=== PATIENT | female | born 1975 | race Caucasian/White ===

== ENCOUNTER 2019-10-11 16:14 | Emergency (ER) | payer SELFPAY ==
[~2019-10-11] VITALS: Ht 160 cm; Wt 95.0 kg
[~2019-10-11 16:14] MED LIST: ONDANSETRON 4 MG/2 ML (SDV) Z0FRAN ONE
[2019-10-11] MEDS ORDERED: NS IV 1000 ML 1,000 ML IV STA (16:16)
[2019-10-11] MEDS ORDERED: inSUlin (REGULAR) HUMAN 1 UNIT/0.01 ML (CHARGE PER UNIT) IV STA (16:20)
--- NOTE | 2019-10-11 16:20 | ED Abdominal Pain ---
General Chief Complaint: Abdominal/GI Problems Stated Complaint: VOMITING Source of Information: Patient, EMS, EMS Notes Reviewed History of Present Illness Date Seen by Provider: Oct 11, 2019 Time Seen by Provider: 16:10 Initial Comments This patient is a 44-year-old female who presents to the emergency department complaining of nausea vomiting and elevated blood glucose patient has a long history of diabetes. Patient states that she was taken off her diabetes medications over 2 years ago after she lost over 100 pounds. The states she get injured at work and has not been working gained a lot of weight back patient admits that she does not check her sugar regularly. Has not been taking any medications for the same for some time. EMS reports that the patient's glucose was over 400. We will do medical evaluation treatment is needed. The Timing/Duration: 4-6 Hours Severity/Quality: Moderate Location: Generalized Abdomen Radiation: No Radiation Modifying Factors: Worsens With Analgesics, Worsens With Antacids, Worsens With Breathing, Worsens With Coughing, Worsens With Defecating, Worsens With Eating, Worsens With Exercise, Worsens With Lying down, Worsens With Movement, Worsens With Palpation, Worsens With Resting, Worsens With Urinating, Worsens With Vomi ting, Worsens With Other Associated Symptoms: No Denies Symptoms, No Back Pain, No Chest Pain, No Diaphoresis, No Fever/Chills, No Fatigue, No Headache, No Heartburn, No Nausea/Vomiting, No Rash, No Shortness of Air, No Swelling/Mass in Abdomen, No Syncope, No Weakness, No Other Allergies and Home Medications Allergies Coded Allergies: No Known Drug Allergies (Unverified , 10/11/19) Patient Home Medication List Home Medication List Reviewed: Yes Review of Systems Review of Systems Constitutional: No no symptoms reported; see HPI; No chills, No diaphoresis, No dizziness, No fever, No malaise, No weakness, No weight gain, No weight loss, No other EENTM: No No Symptoms Reported, No See HPI, No Blurred Vision, No Double Vision, No Eye Pain, No Eye Tearing, No Ear Drainage, No Ear Pain, No Mouth Pain, No Mouth Swelling, No Nose Congestion, No Nose Pain, No Throat Pain, No Throat Swelling, No Other Respiratory: Denies No Symptoms Reported, Denies See HPI, Denies Cough, Denies Orthopnea, Denies Shortness of Air, Denies SOA With Exertion, Denies SOA at Rest, Denies Stridor, Denies Wheezing, Denies Other Cardiovascular: Denies No Symptoms Reported, Denies See HPI, Denies Chest Pain, Denies Edema, Denies Irregular Heart Rate, Denies Lightheadedness, Denies Palpitations, Denies Syncope, Denies Other Gastrointestinal: Denies No Symptoms Reported; See HPI; Denies Abdomen Distended; Abdominal Pain; Denies Blood Streaked Stools, Denies Constipated, Denies Diarrhea, Denies Difficulty Swallowing; Nausea; Denies Poor Appetite, Denies Poor Fluid Intake, Denies Rectal Bleeding; Vomiting; Denies Other Genitourinary: Denies No Symptoms Reported, Denies See HPI, Denies Burning, Denies Discharge, Denies Drainage, Denies Frequency, Denies Flank Pain, Denies Hematuria, Denies Incontinence, Denies Pain, Denies Urgency, Denies Other Skin: No no symptoms reported, No see HPI, No change in color, No change in hair/nails, No dryness, No hx of skin cancer, No lesions, No lumps, No pruritus, No rash, No other Physical Exam Vital Signs Vital Signs - First Documented 10/11/19 16:44 Temp 36.9 Pulse 88 Resp 20 B/P (MAP) 170/96 (120) Pulse Ox 95 O2 Delivery Room Air Capillary Refill : Height/Weight/BMI Height: '" Weight: lbs. oz. kg; BMI Method: General Appearance: WD/WN, no apparent distress; No mild distress, No moderate distress, No severe distress, No cachetic, No obese, No thin, No other HEENT: PERRL/EOMI, normal ENT inspection, TMs normal, pharynx normal Neck: non-tender, full range of motion, supple, normal inspection Respiratory: chest non-tender, lungs clear, normal breath sounds, no respiratory distress, no accessory muscle use Cardiovascular: normal peripheral pulses, regular rate, rhythm, no edema, no gallop, no JVD, no murmur Gastrointestinal: normal bowel sounds, non tender, soft, no organomegaly, no pulsatile mass Extremities: normal range of motion, non-tender, normal inspection, no pedal edema, no calf tenderness, normal capillary refill Progress/Results/Core Measures Results/Orders Lab Results Laboratory Tests Test 10/11/19 16:11 10/11/19 16:20 10/11/19 16:26 10/11/19 17:10 Range/Units White Blood Count 12.3 H 4.3-11.0 10^3/uL Red Blood Count 5.53 4.35-5.85 10^6/uL Hemoglobin 15.9 11.5-16.0 G/DL Hematocrit 47 35-52 % Mean Corpuscular Volume 84 80-99 FL Mean Corpuscular Hemoglobin 29 25-34 PG Mean Corpuscular Hemoglobin Concent 34 32-36 G/DL Red Cell Distribution Width 12.1 10.0-14.5 % Platelet Count 205 130-400 10^3/uL Mean Platelet Volume 13.1 H 7.4-10.4 FL Neutrophils (%) (Auto) 92 H 42-75 % Lymphocytes (%) (Auto) 6 L 12-44 % Monocytes (%) (Auto) 2 0-12 % Eosinophils (%) (Auto) 0 0-10 % Basophils (%) (Auto) 0 0-10 % Neutrophils # (Auto) 11.3 H 1.8-7.8 X 10^3 Lymphocytes # (Auto) 0.7 L 1.0-4.0 X 10^3 Monocytes # (Auto) 0.2 0.0-1.0 X 10^3 Eosinophils # (Auto) 0.0 0.0-0.3 10^3/uL Basophils # (Auto) 0.0 0.0-0.1 10^3/uL Neutrophils % (Manual) 84 % Lymphocytes % (Manual) 9 % Monocytes % (Manual) 1 % Eosinophils % (Manual) 0 % Basophils % (Manual) 1 % Band Neutrophils 5 % Blood Morphology Comment NORMAL Sodium Level 140 135-145 MMOL/L Potassium Level 4.6 3.6-5.0 MMOL/L Chloride Level 98 98-107 MMOL/L Carbon Dioxide Level 21 21-32 MMOL/L Anion Gap 21 H 5-14 MMOL/L Blood Urea Nitrogen 16 7-18 MG/DL Creatinine 0.92 0.60-1.30 MG/DL Estimat Glomerular Filtration Rate > 60 BUN/Creatinine Ratio 17 Glucose Level 471 *H 70-105 MG/DL Calcium Level 9.9 8.5-10.1 MG/DL Corrected Calcium 9.6 8.5-10.1 MG/DL Total Bilirubin 0.5 0.1-1.0 MG/DL Aspartate Amino Transf (AST/SGOT) 17 5-34 U/L Alanine Aminotransferase (ALT/SGPT) 20 0-55 U/L Alkaline Phosphatase 187 H 40-136 U/L Total Protein 7.2 6.4-8.2 GM/DL Albumin 4.4 3.2-4.5 GM/DL Amylase Level 80 25-125 U/L Lipase 34 8-78 U/L Serum Test, Qualitative NEGATIVE NEGATIVE Glucometer 409 *H 70-110 MG/DL Blood Gas Puncture Site LT RAD Blood Gas Patient Temperature 36.9 Arterial Blood pH 7.39 7.37-7.43 Arterial Blood Partial Pressure CO2 38 35-45 MMHG Arterial Blood Partial Pressure O2 66 L 79-93 MMHG Arterial Blood HCO3 23 23-27 MMOL/L Arterial Blood Total CO2 24.2 21.0-31.0 MMOL/L Arterial Blood Oxygen Saturation 93 L 94-100 % Arterial Blood Base Excess -1.7 -2.5-2.5 MMOL/L Theron Test YES-POS Blood Gas Ventilator Setting NO Blood Gas Inspired Oxygen ROOM AIR Urine Color YELLOW Urine Clarity CLEAR Urine pH 6.0 5-9 Urine Specific [place] 1.015 L 1.016-1.022 Urine Protein NEGATIVE NEGATIVE Urine Glucose (UA) 3+ H NEGATIVE Urine Ketones 2+ H NEGATIVE Urine Nitrite NEGATIVE NEGATIVE Urine Bilirubin NEGATIVE NEGATIVE Urine Urobilinogen 0.2 < = 1.0 MG/DL Urine Leukocyte Esterase NEGATIVE NEGATIVE Urine RBC (Auto) NEGATIVE NEGATIVE Urine RBC NONE /HPF Urine WBC NONE /HPF Urine Squamous Epithelial Cells 2-5 /HPF Urine Crystals NONE /LPF Urine Bacteria TRACE /HPF Urine Casts NONE /LPF Urine Mucus NEGATIVE /LPF Urine Culture Indicated NO Test 10/11/19 17:23 Range/Units Glucometer 333 H 70-110 MG/DL My Orders Orders - CHANDAN RUTH MD Comprehensive Metabolic Panel (10/11/19 16:16) Lipase (10/11/19 16:16) Amylase (10/11/19 16:16) Ua Culture If Indicated (10/11/19 16:16) Hcg,Qualitative Serum (10/11/19 16:16) Ed Iv/Invasive Line Start (10/11/19 16:16) Cbc With Automated Diff (10/11/19 16:16) Ns Iv 1000 Ml (Sodium Chloride 0.9%) (10/11/19 16:16) Ondansetron Injection (Zofran Injectio (10/11/19 16:30) Ondansetron Injection (Zofran Injectio (10/11/19 16:13) Arterial Blood Gas (10/11/19 16:23) Insulin (Regular) Human (Humulin R (Per (10/11/19 16:20) Manual Differential (10/11/19 16:11) Medications Given in ED Current Medications Medications Dose Ordered Sig/Jarrell Route Start Time Stop Time Status Last Admin Dose Admin Ondansetron HCl 4 mg ONCE ONCE IVP 10/11/19 16:30 10/11/19 16:31 DC 10/11/19 16:22 4 MG Vital Signs/I&O 10/11/19 16:44 Temp 36.9 Pulse 88 Resp 20 B/P (MAP) 170/96 (120) Pulse Ox 95 O2 Delivery Room Air FSBG Bedside Testing Finger Stick Blood Glucose: 400 Blood Glucose Action Taken: patient given IV fluid bolus and Zofran for nausea and regular insulin 8 un Progress Progress Note : Time: 17:55 Progress Note Patient is doing much better after IV fluid bolus. Nausea is resolved. Glucose is trending downward less than 300. I did discuss at length with patient options. Patient states that she was previously on metformin. We will restart this medication. Encourage by mouth fluids. Monitor glucose with glucometer as instructed with every meal and at bedtime. Take medications as instructed. Low carbohydrate diet. Follow-up with PCP in 2-3 days. Patient discharged home Departure Impression Primary Impression: Acute hyperglycemia Additional Impression: Nausea and vomiting Disposition: 01 HOME, SELF-CARE Condition: Stable Departure-Patient Inst. Decision time for Depature: 17:56 Patient Instructions: Blood Glucose Monitoring, Diabetes and Diet, Hypergl ycemia, Adult (DC) Add. Discharge Instructions: Encourage by mouth fluids. Monitor glucose with glucometer as instructed with every meal and at bedtime. Take medications as instructed. Low carbohydrate diet. Follow-up with PCP in 2-3 days. Patient discharged home All discharge instructions reviewed with patient and/or family. Voiced understanding. Scripts Metformin HCl (Metformin HCl) 1,000 Mg Tablet 1000 MG PO BID for 30 Days, #60 TAB 0 Refills Prov: CHANDAN RUTH MD 10/11/19 CHANDAN RUTH MD Oct 11, 2019 16:20
[2019-10-11] MEDS ORDERED: ONDANSETRON 4 MG/2 ML (SDV) Z0FRAN IVP ONE (16:30)
[2019-10-11 16:33] LABS: ABG BASE EXCESS -1.7 MMOL/L (-2.5-2.5); ABG OXYGEN SATURATION 93 % (94-100); ABG PCO2 38 MMHG (35-45); ABG PH 7.39 (7.37-7.43); ABG PO2 66 MMHG (79-93); ABG TCO2 24.2 MMOL/L (21.0-31.0)
[2019-10-11 16:34] LABS: BASOPHILS % (AUTO) 0 % (0-10); EOSINOPHILS % (AUTO) 0 % (0-10); HEMATOCRIT 47 % (35-52); HEMOGLOBIN 15.9 G/DL (11.5-16.0); LYMPHOCYTES % (AUTO) 6 % (12-44); MEAN CORPUSCULAR HEMOGLOBIN 29 PG (25-34); MEAN CORPUSCULAR HGB CONC 34 G/DL (32-36); MEAN CORPUSCULAR VOLUME 84 FL (80-99); MEAN PLATELET VOLUME 13.1 FL (7.4-10.4); MONOCYTES % (AUTO) 2 % (0-12); NEUTROPHILS % (AUTO) 92 % (42-75); PLATELET COUNT 205 10^3/uL (130-400); RED CELL DISTRIBUTION WIDTH 12.1 % (10.0-14.5); WHITE BLOOD COUNT 12.3 10^3/uL (4.3-11.0)
[2019-10-11 16:34] LABS: ALLENS TEST YES-POS; INSPIRED O2 ROOM AIR; PATIENT TEMP 36.9; VENTILATOR NO
[2019-10-11 16:35] LABS: LYMPHOCYTES # (AUTO) 0.7 X 10^3 (1.0-4.0); MONOCYTES # (AUTO) 0.2 X 10^3 (0.0-1.0); NEUTROPHILS # (AUTO) 11.3 X 10^3 (1.8-7.8)
[2019-10-11 16:54] LABS: CARBON DIOXIDE 21 MMOL/L (21-32); CHLORIDE 98 MMOL/L (98-107); POTASSIUM 4.6 MMOL/L (3.6-5.0); SODIUM 140 MMOL/L (135-145)
[2019-10-11 16:55] LABS: ALANINE AMINOTRANSFERASE 20 U/L (0-55); ALKALINE PHOSPHATASE 187 U/L (40-136); BILIRUBIN,TOTAL 0.5 MG/DL (0.1-1.0); BUN/CREATININE RATIO 17; CALCIUM 9.9 MG/DL (8.5-10.1); CREATININE SERUM 0.92 MG/DL (0.60-1.30); GFR ESTIMATED > 60; GLUCOSE 471 MG/DL (70-105)
[2019-10-11 16:56] LABS: ALBUMIN 4.4 GM/DL (3.2-4.5); AMYLASE 80 U/L (25-125); LIPASE 34 U/L (8-78); TOTAL PROTEIN 7.2 GM/DL (6.4-8.2)
[2019-10-11 17:20] LABS: BAND NEUTROPHILS 5 %; BASOPHILS % (MANUAL) 1 %; EOSINOPHILS % (MANUAL) 0 %; LYMPHOCYTES % (MANUAL) 9 %; MONOCYTES % (MANUAL) 1 %; NEUTROPHILS % (MANUAL) 84 %; RBC MORPH NORMAL
[2019-10-11 17:35] LABS: BILIRUBIN,URINE NEGATIVE (NEGATIVE); CLARITY,URINE CLEAR; COLOR,URINE YELLOW; GLUCOSE, URINE (UA) 3+ (NEGATIVE); KETONES,URINE 2+ (NEGATIVE); NITRITE,URINE NEGATIVE (NEGATIVE); PROTEIN,URINE NEGATIVE (NEGATIVE)
[2019-10-11 17:36] LABS: BACTERIA,URINE TRACE /HPF; LEUKOCYTE ESTERASE ,URINE NEGATIVE (NEGATIVE)
[2019-10-11] MEDS ORDERED: METF-399 PO (17:57)
[2019-10-11 18:15] VITALS: BP 165/89
--- OUTSIDE RECORDS SUMMARY | 2019-10-11 21:15 | XMS REPORT | Continuity of Care Document ---
Demographics Preferred Language Unknown Marital Status Unknown Religion Affiliation Unknown Race Unknown Ethnic Group Unknown Author Organization Unknown Address Unknown Phone Unavailable Allergies There is no data. Medications There is no data. Problems There is no data. Procedures There is no data. Results Test Result Range Complete blood count (CBC) with automate d white blood cell (WBC) differential - 10/11/19 16:11 Blood leukocytes automated count (number/volume) 12.3 10*3/uL 4.3-11.0 Blood erythrocytes automated count (number/volume) 5.53 10*6/uL 4.35-5.85 Venous blood hemoglobin measurement (mass/volume) 15.9 g/dL 11.5-16.0 Blood hematocrit (volume fraction) 47 % 35-52 Automated erythrocyte mean corpuscular volume 84 [ foz_us] 80-99 Automated erythrocyte mean corpuscular h emoglobin (mass per erythrocyte) 29 pg 25-34 Automated erythrocyte mean corpuscular h emoglobin concentration measurement (mass/volume) 34 g/dL 32-36 Automated erythrocyte distribution width ratio 12. 1 % 10.0- 14.5 Automated blood platelet count (count/volume) 205 10*3/uL 130-400 Automated blood platelet mean volume measurement 13.1 [foz_us] 7.4-10.4 Automated blood neutrophils/100 leukocytes 92 % 42-75 Automated blood lymphocytes/100 leukocytes 6 % 12-44 Blood monocytes/100 leukocytes 2 % 0-12 Automated blood eosinophils/100 leukocytes 0 % 0-10 Automated blood basophils/100 leukocytes 0 % 0-10 Blood neutrophils automated count (number/volume) 11.3 10*3 1.8-7.8 Blood lymphocytes automated count (number/volume) 0.7 10*3 1.0-4.0 Blood monocytes automated count (number/volume) 0. 2 10*3 0.0-1.0 Automated eosinophil count 0.0 10*3/uL 0 .0-0.3 Automated blood basophil count (count/volume) 0.0 10*3/uL 0.0-0.1 Serum or plasma choriogonadotropin (preg emma test) detection - 10/11/19 16:11 Serum or plasma choriogonadotropin ( test) de tection NEGATIVE NEGATIVE Comprehensive metabolic panel - 10/11/19 16:11 Serum or plasma sodium measurement (moles/volume) 140 mmol/L 135-145 Serum or plasma potassium measurement (moles/volume) 4.6 mmol/L 3.6-5.0 Serum or plasma chloride measurement (moles/volume) 98 mmol/L 98-107 Carbon dioxide 21 mmol/L 21-32 Serum or plasma anion gap determination (moles/volume) 21 mmol/L 5-14 Serum or plasma urea nitrogen measurement (mass/volume ) 16 mg/dL 7-18 Serum or plasma creatinine measurement (mass/volume) 0.92 mg/dL 0.60-1.30 Serum or plasma urea nitrogen/creatinine mass ratio 17 NRG Serum or plasma creatinine measurement w ith calculation of estimated glomerular filtration rate > NRG Serum or plasma glucose measurement (mass/volume) 471 mg/dL 70-105 Serum or plasma calcium measurement (mass/volume) 9.9 mg/dL 8.5-10.1 Serum or plasma total bilirubin measurement (mass/volu me) 0.5 mg/dL 0.1-1.0 Serum or plasma alkaline phosphatase clary surement (enzymatic activity/volume) 187 U/L 40-136 Serum or plasma aspartate aminotransfera se measurement (enzymatic activity/volume) 17 U/L 5-34 Serum or plasma alanine aminotransferase measurement (enzymatic activity/volume) 20 U/L 0-55 Serum or plasma protein measurement (mass/volume) 7.2 g/dL 6.4-8.2 Serum or plasma albumin measurement (mass/volume) 4.4 g/dL 3.2-4.5 CALCIUM CORRECTED 9.6 mg/dL 8.5-10.1 Serum or plasma amylase measurement (enz ymatic activity/volume) - 10/11/19 16:11 Serum or plasma amylase measurement (enzymatic activit y/volume) 80 U/L 25-125 Lipase - 10/11/19 16:11 Lipase 34 U/L 8-78 Manual absolute plasma cell count - 01/22 16:11 Blood monocytes/100 leukocytes 1 % NRG Manual blood segmented neutrophils/100 leukocytes 84 % NRG Blood band neutrophils/100 leukocytes 5 % NRG Manual blood lymphocytes/100 leukocytes 9 % NRG Manual eosinophils/100 leukocytes in nose 0 % NRG Manual blood basophils/100 leukocytes 1 % NRG Blood erythrocyte morphology finding identification NORMAL NRG Capillary blood glucose measurement by g lucometer (mass/volume) - 10/11/19 16:20 Capillary blood glucose measurement by glucometer (mas s/volume) 409 mg/dL 70-110 Arterial blood gas measurement - 0 16:26 Blood pCO2 38 mm[Hg] 35-45 Blood pO2 66 mm[Hg] 79-93 Arterial blood bicarbonate measurement (moles/volume) 23 mmol/L 23-27 Arterial blood base excess by calculation -1.7 mmo l/L -2.5-2.5 Arterial blood oxygen saturation measurement 93 % 94-100 * Inhaled oxygen flow rate ROOM AIR NRG Arterial blood pH measurement with patient temperature correction 7.39 7.37-7.43 Arterial blood carbon dioxide, total measurement (mole s/volume) 24.2 mmol/L 21.0-31.0 Body site LT RAD NRG Assessment of wrist artery patency prior to arterial p uncture YES-POS NRG Setting of ventilation mode NO NR G Measurement of body temperature 36.9 NRG Complete urinalysis with reflex to cultu re - 10/11/19 17:10 Urine color determination YELLOW NRG Urine clarity determination CLEAR NR G Urine pH measurement by test strip 6.0 5-9 Specific gravity of urine by test strip 1.015 1.016-1.022 Urine protein assay by test strip, semi-quantitative NEGATIVE NEGATIVE Urine glucose detection by automated test strip 3+ NEGATIVE Erythrocytes detection in urine sediment by light micr oscopy NEGATIVE NEGATIVE Urine ketones detection by automated test strip 2+ NEGATIVE Urine nitrite detection by test strip NEGATIVE NEGATIVE Urine total bilirubin detection by test strip NEGA TIVE NEGATIVE Urine urobilinogen measurement by automated test strip (mass/volume) 0.2 mg/dL < = 1.0 Urine leukocyte esterase detection by dipstick NEG ATIVE NEGATIVE Automated urine sediment erythrocyte cou nt by microscopy (number/high power field) NONE NRG Automated urine sediment leukocyte count by microscopy (number/high power field) NONE NRG Bacteria detection in urine sediment by light microsco py TRACE NRG Squamous epithelial cells detection in u rine sediment by light microscopy 2-5 NRG Crystals detection in urine sediment by light microsco py NONE NRG Casts detection in urine sediment by light microscopy NONE NRG Mucus detection in urine sediment by light microscopy NEGATIVE NRG Complete urinalysis with reflex to culture NO NRG Capillary blood glucose measurement by g lucometer (mass/volume) - 10/11/19 17:23 Capillary blood glucose measurement by glucometer (mas s/volume) 333 mg/dL 70-110 Encounters ACCT No. Visit Date/Time Discharge Status Pt. Type Provider Facility Loc./Unit Complaint [id number] 10/11/2019 16:28:00 Document Registration
== END 2019-10-11 17:30 | disposition home or self-care (01) ==
LOC: EDUNIT# 16:14 → ER FS 16:15
DX: E11.65 Type 2 diabetes mellitus with hyperglycemia (principal); R11.2 Nausea with vomiting, unspecified
CPT/HCPCS: 36415; 80053; 81000; 82150; 82805; 82962; 83690; 84703; 85007; 85027; 96361; 96374; 96375

== ENCOUNTER 2019-10-20 14:59 | Emergency (ER) | payer SELFPAY ==
[~2019-10-20] VITALS: Ht 160 cm; Wt 86.4 kg
[~2019-10-20 14:59] MED LIST changes: +METF-399 PO; +METOCLOPRAMIDE INJ 10 MG/2 ML (REGLAN) ONE; -ONDANSETRON 4 MG/2 ML (SDV) Z0FRAN ONE
[2019-10-20] MEDS ORDERED: NS IV 1000 ML 1,000 ML IV STA (15:04)
--- NOTE | 2019-10-20 15:08 | ED General ---
General Stated Complaint: DIZZY; NAUSEA Source of Information: Patient, EMS, Old Records, RN Notes Reviewed History of Present Illness Date Seen by Provider: Oct 20, 2019 Time Seen by Provider: 15:00 Initial Comments This patient is a 44-year-old female presents to the emergency department complaining nausea vomiting this been going on for the past several days. Patient seen 1 week ago in the emergency department for same with a negative evaluation discharged home she states she was started on metformin at that time. Patient did see her PCP yesterday with a telemedicine visit for this nausea vomiting continues with metformin but also was placed on lisinopril for blood pressure issues. Patient states still can't keep anything down his been dry heaving and vomiting. EMS did start an IV on the patient and gave the patient 4 mg of IV Zofran. Patient is still nauseous on arrival. Patient states she has a long history of acid reflux. Timing/Duration: 6-7 Days Associated Systoms: No Denies Symptoms, No Chest Pain, No Cough, No Diaphoresis, No Fever/Chills; Loss of Appetite; No Malaise, No Nausea/Vomiting, No Rash, No Seizure, No Shortness of Air, No Syncope, No Weakness, No Other Allergies and Home Medications Allergies Coded Allergies: No Known Drug Allergies (Unverified , 10/11/19) Home Medications Metformin HCl 1,000 Mg Tablet, 1,000 MG PO BID Prescribed by: CHANDAN RUTH on 10/11/19 6935 Patient Home Medication List Home Medication List Reviewed: Yes Review of Systems Review of Systems Constitutional: No no symptoms reported; see HPI; No chills, No diaphoresis, No dizziness, No fever, No malaise, No weakness, No weight gain, No weight loss, No other EENTM: No see HPI, No no symptoms reported, No ear discharge, No hearing loss, No ear pain, No blurred vision, No double vision, No eye pain, No tearing, No vision loss, No dental problems, No hoarseness, No mouth pain, No mouth swelling, No epistaxis, No nose congestion, No nose pain, No throat pain, No throat swelling, No other Respiratory: No no symptoms reported, No see HPI, No cough, No dyspnea on exertion, No hemoptysis, No orthopnea, No phlegm, No short of breath, No stridor, No wheezing, No other Cardiovascular: No no symptoms reported, No see HPI, No chest pain, No edema, No Hx of Intervention, No palpitations, No syncope, No vascular heart diseas, No other Gastrointestinal: see HPI, heartburn, nausea, vomiting Genitourinary: No no symptoms reported, No see HPI, No decreased output, No discharge, No dysuria, No frequency, No hematuria, No hesitancy, No incontinence, No nocturia, No pain, No other Musculoskeletal: No no symptoms reported, No see HPI, No back pain, No gout, No joint pain, No joint swelling, No muscle pain, No muscle stiffness, No muscle cramps, No muscle twitching, No muscle weakness, No neck pain, No other Skin: No no symptoms reported, No see HPI, No change in color, No change in hair/nails, No dryness, No hx of skin cancer, No lesions, No lumps, No pruritus, No rash, No other All Other Systems Reviewed Negative Unless Noted: Yes Past Bwhdccu-Acjxfe-Nyvfla Hx Patient Social History Type Used: Cigarettes 2nd Hand Smoke Exposure: No Recent Foreign Travel: Yes Recent Hopitalizations: No Seasonal Allergies Seasonal Allergies: No Past Medical History Surgeries: Yes Hysterectomy, Tubal Ligation Respiratory: No Cardiac: Yes Hypertension 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 oz. kg; 37.00 BMI Method: General Appearance: No Apparent Distress, WD/WN Respiratory: Chest Non Tender, Lungs Clear, Normal Breath Sounds, No Accessory Muscle Use, No Respiratory Distress Cardiovascular: Regular Rate, Rhythm, No Edema, No Gallop, No JVD, No Murmur, Normal Peripheral Pulses Gastrointestinal: Normal Bowel Sounds, No Organomegaly, No Pulsatile Mass, Non Tender, Soft Extremity: Normal Capillary Refill, Normal Inspection, Normal Range of Motion, Non Tender, No Calf Tenderness, No Pedal Edema Skin: Normal Color, Warm/Dry Lymphatic: No Adenopathy Progress/Results/Core Measures Suspected Sepsis SIRS Temperature: Pulse: Respiratory Rate: Laboratory Tests 10/20/19 15:07: White Blood Count 12.9H Blood Pressure / Mean: Laboratory Tests 10/20/19 15:07: Creatinine 0.98, Platelet Count 240, Total Bilirubin 0.4 Results/Orders Lab Results Laboratory Tests Test 10/20/19 15:07 10/20/19 16:16 Range/Units White Blood Count 12.9 H 4.3-11.0 10^3/uL Red Blood Count 5.50 4.35-5.85 10^6/uL Hemoglobin 15.8 11.5-16.0 G/DL Hematocrit 46 35-52 % Mean Corpuscular Volume 84 80-99 FL Mean Corpuscular Hemoglobin 29 25-34 PG Mean Corpuscular Hemoglobin Concent 34 32-36 G/DL Red Cell Distribution Width 12.1 10.0-14.5 % Platelet Count 240 130-400 10^3/uL Mean Platelet Volume 13.4 H 7.4-10.4 FL Neutrophils (%) (Auto) 82 H 42-75 % Lymphocytes (%) (Auto) 13 12-44 % Monocytes (%) (Auto) 3 0-12 % Eosinophils (%) (Auto) 0 0-10 % Basophils (%) (Auto) 1 0-10 % Neutrophils # (Auto) 10.6 H 1.8-7.8 X 10^3 Lymphocytes # (Auto) 1.7 1.0-4.0 X 10^3 Monocytes # (Auto) 0.4 0.0-1.0 X 10^3 Eosinophils # (Auto) 0.0 0.0-0.3 10^3/uL Basophils # (Auto) 0.1 0.0-0.1 10^3/uL Sodium Level 141 135-145 MMOL/L Potassium Level 4.6 3.6-5.0 MMOL/L Chloride Level 101 98-107 MMOL/L Carbon Dioxide Level 21 21-32 MMOL/L Anion Gap 19 H 5-14 MMOL/L Blood Urea Nitrogen 21 H 7-18 MG/DL Creatinine 0.98 0.60-1.30 MG/DL Estimat Glomerular Filtration Rate > 60 BUN/Creatinine Ratio 21 Glucose Level 261 H 70-105 MG/DL Calcium Level 9.8 8.5-10.1 MG/DL Corrected Calcium 9.4 8.5-10.1 MG/DL Total Bilirubin 0.4 0.1-1.0 MG/DL Aspartate Amino Transf (AST/SGOT) 19 5-34 U/L Alanine Aminotransferase (ALT/SGPT) 22 0-55 U/L Alkaline Phosphatase 157 H 40-136 U/L Total Protein 6.9 6.4-8.2 GM/DL Albumin 4.5 3.2-4.5 GM/DL Amylase Level 87 25-125 U/L Lipase 50 8-78 U/L Serum Test, Qualitative NEGATIVE NEGATIVE Urine Color YELLOW Urine Clarity SLT CLOUDY Urine pH 5.0 5-9 Urine Specific [place] >=1.030 1.016-1.022 Urine Protein 1+ H NEGATIVE Urine Glucose (UA) 3+ H NEGATIVE Urine Ketones 3+ H NEGATIVE Urine Nitrite NEGATIVE NEGATIVE Urine Bilirubin NEGATIVE NEGATIVE Urine Urobilinogen 0.2 < = 1.0 MG/DL Urine Leukocyte Esterase NEGATIVE NEGATIVE Urine RBC (Auto) NEGATIVE NEGATIVE Urine RBC NONE /HPF Urine WBC 0-2 /HPF Urine Squamous Epithelial Cells 10-25 H /HPF Urine Crystals PRESENT H /LPF Urine Amorphous Sediment FEW RYAN URATES H /LPF Urine Bacteria TRACE /HPF Urine Casts NONE /LPF Urine Mucus NONE /LPF Urine Culture Indicated NO Urine Opiates Screen NEGATIVE NEGATIVE Urine Oxycodone Screen NEGATIVE NEGATIVE Urine Methadone Screen NEGATIVE NEGATIVE Urine Propoxyphene Screen NEGATIVE NEGATIVE Urine Barbiturates Screen NEGATIVE NEGATIVE Ur Tricyclic Antidepressants Screen NEGATIVE NEGATIVE Urine Phencyclidine Screen NEGATIVE NEGATIVE Urine Amphetamines Screen NEGATIVE NEGATIVE Urine Methamphetamines Screen NEGATIVE NEGATIVE Urine Benzodiazepines Screen NEGATIVE NEGATIVE Urine Cocaine Screen NEGATIVE NEGATIVE Urine Cannabinoids Screen NEGATIVE NEGATIVE My Orders Orders - CHANDAN RUTH MD Comprehensive Metabolic Panel (10/20/19 15:03) Lipase (10/20/19 15:03) Amylase (10/20/19 15:03) Ua Culture If Indicated (10/20/19 15:03) Hcg,Qualitative Serum (10/20/19 15:03) Ed Iv/Invasive Line Start (10/20/19 15:03) Acute Abd Series (10/20/19 15:03) Cbc With Automated Diff (10/20/19 15:03) Drug Screen Stat (Urine) (10/20/19 15:03) Metoclopramide Injection (Reglan Injecti (10/20/19 15:15) Metoclopramide Injection (Reglan Injecti (10/20/19 14:57) Ns Iv 1000 Ml (Sodium Chloride 0.9%) (10/20/19 15:04) Pantoprazole Injection (Protonix Injecti (10/20/19 15:15) Medications Given in ED Current Medications Medications Dose Ordered Sig/Jarrell Route Start Time Stop Time Status Last Admin Dose Admin Metoclopramide HCl 10 mg ONCE ONCE IVP 10/20/19 15:15 10/20/19 15:16 DC 10/20/19 15:11 10 MG Pantoprazole 40 mg ONCE ONCE IV 10/20/19 15:15 10/20/19 15:16 DC 10/20/19 15:12 40 MG Vital Signs/I&O 10/20/19 15:02 Temp 36.3 Pulse 79 Resp 18 B/P (MAP) 144/79 (100) Pulse Ox 98 O2 Delivery Room Air Capillary Refill : Progress Note : Time: 17:08 Progress Note This patient is much improved and resting comfortably. Patient states still has low bit of nausea with causing him to be a little dizzy. Has had no vomiting in the emergency department. After given medications. We did discuss at length with patient about acid reflux issues chronic diabetes gastroparesis nausea vomiting. Patient be given a prescription for Reglan and Zofran. We'll also place the patient on by mouth Protonix. Patient is to follow up with her PCP in 2-3 days patient could possibly benefit from an outpatient EGD. Patient states understanding she is discharged home Departure Impression Primary Impression: Nausea and vomiting Additional Impressions: Diabetes mellitus GERD without esophagitis Disposition: 01 HOME, SELF-CARE Condition: Stable Departure-Patient Inst. Decision time for Depature: 17:09 Referrals: NO,LOCAL PHYSICIAN (PCP) Primary Care Physician Patient Instructions: Acid Reflux (GERD), Adolescent (DC), Diabetes Type 2 (DC), Nausea and Vomiting, Adult (DC) Add. Discharge Instructions: Encourage by mouth fluids. [place] diet as needed. Take medications as instructed. Follow-up with PCP in 2-3 days if not improved. May return to the emergency department symptoms don't improve or worsen. Scripts Ondansetron (Ondansetron Odt) 4 Mg Tab.rapdis 4 MG PO 3 times a day, #10 TAB 0 Refills Prov: CHANDAN RUTH MD 10/20/19 Metoclopramide HCl (Reglan) 5 Mg Tablet 5 MG PO 3 times a day, #30 TAB 0 Refills Prov: CHANDAN RUTH MD 10/20/19 Pantoprazole Sodium (Protonix) 20 Mg Tablet.dr 20 MG PO DAILY, #30 TAB 0 Refills Prov: CHANDAN RUTH MD 10/20/19 CHANDAN RUTH MD Oct 20, 2019 15:08
[2019-10-20] MEDS ORDERED: METOCLOPRAMIDE INJ 10 MG/2 ML (REGLAN) IVP ONE (15:15)
[2019-10-20] MEDS ORDERED: PANTOPRAZOLE 40 MG (PROTONIX) VIAL IV ONE (15:15)
[2019-10-20 15:19] LABS: WHITE BLOOD COUNT 12.9 10^3/uL (4.3-11.0)
[2019-10-20 15:20] LABS: HEMATOCRIT 46 % (35-52); HEMOGLOBIN 15.8 G/DL (11.5-16.0); MEAN CORPUSCULAR HEMOGLOBIN 29 PG (25-34); MEAN CORPUSCULAR VOLUME 84 FL (80-99)
[2019-10-20 15:21] LABS: BASOPHILS # (AUTO) 0.1 10^3/uL (0.0-0.1); BASOPHILS % (AUTO) 1 % (0-10); EOSINOPHILS % (AUTO) 0 % (0-10); LYMPHOCYTES # (AUTO) 1.7 X 10^3 (1.0-4.0); LYMPHOCYTES % (AUTO) 13 % (12-44); MEAN CORPUSCULAR HGB CONC 34 G/DL (32-36); MEAN PLATELET VOLUME 13.4 FL (7.4-10.4); MONOCYTES # (AUTO) 0.4 X 10^3 (0.0-1.0); MONOCYTES % (AUTO) 3 % (0-12); NEUTROPHILS # (AUTO) 10.6 X 10^3 (1.8-7.8); NEUTROPHILS % (AUTO) 82 % (42-75); PLATELET COUNT 240 10^3/uL (130-400); RED CELL DISTRIBUTION WIDTH 12.1 % (10.0-14.5)
[2019-10-20 15:42] LABS: BUN/CREATININE RATIO 21; CARBON DIOXIDE 21 MMOL/L (21-32); CHLORIDE 101 MMOL/L (98-107); CREATININE SERUM 0.98 MG/DL (0.60-1.30); GFR ESTIMATED > 60; POTASSIUM 4.6 MMOL/L (3.6-5.0); SODIUM 141 MMOL/L (135-145)
[2019-10-20 15:43] LABS: ALANINE AMINOTRANSFERASE 22 U/L (0-55); ALBUMIN 4.5 GM/DL (3.2-4.5); ALKALINE PHOSPHATASE 157 U/L (40-136); AMYLASE 87 U/L (25-125); BILIRUBIN,TOTAL 0.4 MG/DL (0.1-1.0); CALCIUM 9.8 MG/DL (8.5-10.1); GLUCOSE 261 MG/DL (70-105); LIPASE 50 U/L (8-78); TOTAL PROTEIN 6.9 GM/DL (6.4-8.2)
--- NOTE | 2019-10-20 15:47 | Diagnostic Imaging Report ---
EXAM: ACUTE ABD SERIES INDICATION: Nausea and vomiting. Dizziness. COMPARISON: None. FINDINGS: Normal heart size and pulmonary vascularity. No dense consolidation, pleural effusion or pneumothorax. No acute osseous findings. No free intraperitoneal air. Nonspecific bowel gas pattern. No suspicious radiopaque foreign bodies. Surgical clips in the pelvis. IMPRESSION: No acute radiographic findings in the chest or abdomen. Dictated by: Dictated on workstation # [id number]
--- NOTE | 2019-10-20 15:56 | NUR ---
Patient is resting comfortably at this time, vomiting controlled. Patient continues to c/o dizziness.
[2019-10-20 16:32] LABS: CLARITY,URINE SLT CLOUDY; COLOR,URINE YELLOW; GLUCOSE, URINE (UA) 3+ (NEGATIVE); PROTEIN,URINE 1+ (NEGATIVE)
[2019-10-20 16:33] LABS: BACTERIA,URINE TRACE /HPF; BILIRUBIN,URINE NEGATIVE (NEGATIVE); KETONES,URINE 3+ (NEGATIVE); LEUKOCYTE ESTERASE ,URINE NEGATIVE (NEGATIVE); NITRITE,URINE NEGATIVE (NEGATIVE); WBC,URINE 0-2 /HPF
--- OUTSIDE RECORDS SUMMARY | 2019-10-20 16:33 | XMS REPORT | Continuity of Care Document ---
Author Organization Unknown Address Unknown Phone Unavailable Allergies Active Description Code Type Severity Reaction Onset Reported/Identified Relationship to Patient Clinical Status Yes No Known Drug Allergies [id number] Drug Allergy Unknown N/A 10/11/2019 Medications There is no data. Problems There [...] 8-78 Manual absolute plasma cell count - 04/0 7/20 16:11 Blood monocytes/100 leukocytes 1 % NRG [...] Status Pt. Type Provider Facility Loc./Unit Complaint [id number] 10/11/2019 16:15:00 020 17:30:00 DIS Emergency FARAZ DUFF, CHANDAN Jose [facility] ER FS VOMITING
[2019-10-20 16:34] LABS: AMORPHOUS SEDIMENT,UR FEW AMOR URATES /LPF
[2019-10-20 16:35] LABS: AMPHETAMINE SCREEN, URINE NEGATIVE (NEGATIVE); BARBITURATE SCREEN URINE NEGATIVE (NEGATIVE); BENZODIAZEPINES SCREEN URINE NEGATIVE (NEGATIVE); CANNABINOID SCREEN, URINE NEGATIVE (NEGATIVE); COCAINE SCREEN URINE NEGATIVE (NEGATIVE); METHADONE STAT NEGATIVE (NEGATIVE); METHAMPHETAMINE SCREEN URINE S NEGATIVE (NEGATIVE); OPIATE SCREEN URINE NEGATIVE (NEGATIVE); OXYCODONE STAT NEGATIVE (NEGATIVE); PROPOXYPHENE STAT NEGATIVE (NEGATIVE); TRICYCLIC ANTIDEPRESSANTS SCRE NEGATIVE (NEGATIVE)
[2019-10-20] MEDS ORDERED: METO5TAB75 PO (17:13)
[2019-10-20] MEDS ORDERED: ONDA4TAB11 PO (17:13)
[2019-10-20] MEDS ORDERED: PANT20TA2 PO (17:13)
[2019-10-20 17:39] VITALS: BP 127/51
== END 2019-10-20 17:41 | disposition home or self-care (01) ==
LOC: EDUNIT# 14:59 → ER FS 15:01
DX: E11.9 Type 2 diabetes mellitus without complications (principal); K21.9 Gastro-esophageal reflux disease without esophagitis; I10 Essential (primary) hypertension
CPT/HCPCS: 36415; 74022; 80053; 80306; 81000; 82150; 83690; 84703; 85025; 96374; 96375

== ENCOUNTER 2021-05-11 22:11 | Emergency (ER) | payer SELFPAY ==
[~2021-05-11 22:11] MED LIST changes: +METO5TAB75 PO; -METOCLOPRAMIDE INJ 10 MG/2 ML (REGLAN) ONE; +ONDA4TAB11 PO; +PANT20TA2 PO
--- OUTSIDE RECORDS SUMMARY | 2021-05-11 22:15 | XMS REPORT | Clinical Summary ---
Author Author [facility] Organization [facility] Address Unknown Phone Unavailable Care Team Providers Care Flight Purser Name Role Phone Ada Elena NP PCP Allergies No known active allergies Medications End Date Status Medication Sig Dispensed Refills Start Date Active escitalopram oxalate Take 20 mg by 0 (LEXAPRO) 20 mg tablet mouth daily. Active Problems Not on file Social History Date Tobacco Use Types Packs/Day Years Used Current Some Day Smoker Comments Alcohol Use Standard Drinks/Week No 0 (1 standard drink = 0.6 o z pure alcohol) Sex Assigned at Date Recorded Not on file Last Filed Vital Signs Reading Time Taken Comments Vital Sign 159/91 07/23/2018 10:01 AM [facility] Blood Pressure 63 07/23/2018 8:54 AM [facility] [employer] Pulse 37 C (98.6 F) 07/23/2018 8:54 AM [facility] [employer] Temperature 20 07/23/2018 8:54 AM [employer] Respiratory Rate 98% 07/23/2018 10:01 AM [employer] Oxygen Saturation - - Inhaled Oxygen Concentration 83.9 kg (185 lb) 07/23/2018 8:54 AM [employer] Weight 160 cm (5' 3") 07/23/2018 8:54 AM [employer] Height 32.77 07/23/2018 8:54 AM [facility] [employer] Body Mass Index Plan of Treatment Health Maintenance Due Date Last Done Comments Td/Tdap# 1973 Tobacco Cessation 1973 Counseling # Pneumococcal Vaccine: 1979 Pediatrics (0 to 5 Years) and At-Risk Patients (6 to 64 Years) (1 of 2 - PPSV23) COVID-19 Vaccine (1) 1985 Influenza Vaccine (#1) 2021 Results Not on filefrom Last 3 Months Insurance Type Payer Benefit Subscriber ID Effective Phone Address Plan / Dates Group WORKERS COMPENSATION MISC WORK [id number] 2018- [phone] Present [address] [place] [address] WORKERS COMPENSATION COVENTRY 2018- FIRST Present [facility] [place] (Work) Advance Directives For more information, please contact: [phone] Patient Medical I D Sales Explanation Type Date Recorded Health Care Directive Care Teams Start Date End Date Flight Purser Relationship Specialty 07/23/18 Ada Elena NP PCP - General Nurse [address] [place] [address]
--- NOTE | 2021-05-11 22:36 | ED General ---
General Chief Complaint: Cardiac/General Problems Stated Complaint: HIGH BP;LIGHTHEADED Nursing Triage Note: Pt states she had a slight headache yesterday and has had high blood pressure throughout the day today. Pt states her headache has gotten worse and that she feels light headed at times. Pt is alert and oriented on arrival. Source of Information: Patient History of Present Illness Date Seen by Provider: May 11, 2021 Time Seen by Provider: 22:18 Initial Comments 45-year-old female presenting with complaints of right-sided intermittent sharp headaches. She also is having elevation in her blood pressure since yesterday when the headache started. She has not seen the clinic earlier today about her blood pressure and they advised her to drink more fluids. She plans to go back on Thursday to see Dr. Vaz. However this evening she was having elevated blood pressure on her machine so she took her evening blood pressure medication and then when it was not coming down over the next 45 minutes to an hour she came to the emergency department. She denies having nausea, vomiting, blurred vision, headache, chest pain, chest pressure, Timing/Duration: 2-3 Days Modifying Factors: worse with Movement Associated Systoms: No Denies Symptoms, No Chest Pain, No Cough, No Diaph oresis, No Fever/Chills; Headaches (Right-sided); No Loss of Appetite, No Malaise, No Rash, No Shortness of Air, No Syncope Allergies and Home Medications Allergies Coded Allergies: No Known Drug Allergies (Unverified , 10/11/19) Patient Home Medication List Home Medication List Reviewed: Yes Metformin HCl (Metformin HCl) 1,000 Mg Tablet, 1,000 MG PO BID Prescribed by: CHANDAN RUTH on 10/11/19 175 Metoclopramide HCl (Reglan) 5 Mg Tablet, 5 MG PO 3 times a day Prescribed by: CHANDAN RUTH on 10/20/191712 Ondansetron (Ondansetron Odt) 4 Mg Tab.rapdis, 4 MG PO 3 times a day Prescribed by: CHANDAN RUTH on 10/20/191712 Pantoprazole Sodium (Protonix) 20 Mg Tablet.dr, 20 MG PO DAILY Prescribed by: CHANDAN RUTH on 10/20/191712 Review of Systems Review of Systems Constitutional: no symptoms reported EENTM: ear pain (Sharp right ear pain that is intermittent and radiates to the right side of her head) Respiratory: no symptoms reported Cardiovascular: no symptoms reported Gastrointestinal: no symptoms reported Genitourinary: no symptoms reported Musculoskeletal: no symptoms reported Skin: no symptoms reported Psychiatric/Neurological: No Symptoms Reported Hematologic/Lymphatic: No Symptoms Reported Immunological/Allergic: no symptoms reported Past Ztitsmb-Qasceb-Ytmwnu Hx Patient Social History Tobacco Use?: No Use of E-Cig and/or Vaping dev: No Substance use?: No Alcohol Use?: No Pt feels they are or have been: No Seasonal Allergies Seasonal Allergies: No Past Medical History Surgeries: Yes Hysterectomy, Tubal Ligation Respiratory: No Cardiac: Yes Hypertension 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 oz. kg; 33.00 BMI Method: General Appearance: Anxious, Obese HEENT: PERRL/EOMI, Normal ENT Inspection, Pharynx Normal, TM Abnormal (R) (Unable to visualize right TM due to cerumen impaction) Neck: Full Range of Motion, Normal Inspection, Non Tender, Supple Respiratory: Chest Non Tender, Lungs Clear, Normal Breath Sounds, No Accessory Muscle Use, No Respiratory Distress Cardiovascular: Regular Rate, Rhythm, No Edema, Normal Peripheral Pulses Gastrointestinal: Normal Bowel Sounds, No Pulsatile Mass, Non Tender, Soft Rectal: Deferred Back: No CVA Tenderness Extremity: Normal Capillary Refill, Normal Inspection, Normal Range of Motion, Non Tender, No Calf Tenderness, No Pedal Edema Neurologic/Psychiatric: Alert, Oriented x3, No Motor/Sensory Deficits, Normal 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 This may be due to taking medicine prior to coming. Also the blood pressure may be elevated due to her right ear pain and cerumen impaction. Pain can certainly affect her blood pressures and help raise the pressures. Continue to push fluids and rest. Discussed option of doing IV antibiotics with fluids and treatment for headache but patient declined stating that she felt better and wou ld like to go home since her pressures were better. Advised that we were here if she had other concerns or needed to follow-up. Otherwise keep follow-up as planned on Thursday with Dr. Vaz. Consider taking the amlodipine half pill at bedtime until she can get more direction from Dr. Vaz. Departure Impression Primary Impression: Labile hypertension Additional Impression: Impacted cerumen of right ear Disposition: HOME, SELF-CARE Condition: Stable Departure-Patient Inst. Decision time for Depature: 23:01 Referrals: SHANNON VAZ DO (PCP/Family) Primary Care Physician Patient Instructions: Ear Wax Impaction ED, High Blood Pressure ED, How to Use Ear Drops Add. Discharge Instructions: Stay well hydrated and drink plenty of water. Use ear drops to help soften the wax in the ear You could take the Amlodipine 1/2 pill at bedtime to help with your blood pressures and keep it from being so high in the mornings. Check back with Dr. Vaz and the clinic on Thursday. Return or seek medical care if having worsening symptoms over the weekend. May also try Acetaminophen (Tylenol) for pain with your right side of head and ear All discharge instructions reviewed with patient and/or family. Voiced understanding. JODEE CHAPMAN MD May 11, 2021 22:36
[2021-05-11 23:02] VITALS: BP 128/85
== END 2021-05-11 23:04 | disposition home or self-care (01) ==
LOC: EDUNIT# 22:11 → ER FS 22:13
DX: I10 Essential (primary) hypertension (principal); H61.21 Impacted cerumen, right ear; E11.9 Type 2 diabetes mellitus without complications; E66.9 Obesity, unspecified; Z68.33 Body mass index [BMI] 33.0-33.9, adult; Z79.84 Long term (current) use of oral hypoglycemic drugs
CPT/HCPCS: 99281

== ENCOUNTER 2022-10-09 22:42 | Emergency (ER) | payer SELFPAY ==
[~2022-10-09] VITALS: Ht 162.5 cm; Wt 89.2 kg
[2022-10-09 22:46] VITALS: BP 151/87
--- NOTE | 2022-10-09 22:55 | ED General ---
General Stated Complaint: ARM IS NUMB AND TINGLES AND SPASMS,VERTIGO History of Present Illness Date Seen by Provider: Oct 09, 2022 Time Seen by Provider: 22:51 Initial Comments 47-year-old female presents with recurrent tingling and numbness that presents in her left arm. It seems to get worse with certain why she moves or lays. Is been a little bit worse over the last couple days that she went to have it evaluated. She also has some occasional vertigo that is been longstanding and has some reflux. She is when to have it checked out to make sure nothing else is going on. Allergies and Home Medications Allergies Coded Allergies: No Known Drug Allergies (Unverified , 10/11/19) Patient Home Medication List Home Medication List Reviewed: Yes Metformin HCl (Metformin HCl) 1,000 Mg Tablet, 1,000 MG PO BID Prescribed by: CHANDAN RUTH on 10/11/19 175 Metoclopramide HCl (Reglan) 5 Mg Tablet, 5 MG PO 3 times a day Prescribed by: CHANDAN RUTH on 10/20/19 171 Ondansetron (Ondansetron Odt) 4 Mg Tab.rapdis, 4 MG PO 3 times a day Prescribed by: CHANDAN RUTH on 10/20/19 171 Pantoprazole Sodium (Protonix) 20 Mg Tablet.dr, 20 MG PO DAILY Prescribed by: CHANDAN RUTH on 10/20/191712 Review of Systems Review of Systems Constitutional: chills EENTM: no symptoms reported Respiratory: no symptoms reported Cardiovascular: no symptoms reported Musculoskeletal: see HPI Psychiatric/Neurological: See HPI, Paresthesia Past Oeijdfh-Vamawp-Bguott Hx Seasonal Allergies Seasonal Allergies: No Past Medical History Surgeries: Yes Hysterectomy, Tubal Ligation Respiratory: No Cardiac: Yes Hypertension Neurological: No [employer] 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 oz. 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 Very consistent with a cervical radiculopathy versus radiculopathy due to impingement through the shoulder area. Discussed findings with patient. Patient was offered further evaluation including CT and labs but felt that this was not indicated at this time and will just follow-up with her primary care provider. I discussed with her treatment such as gentle stretching to help with the tightness and muscle spasms throughout her neck. She should follow with her primary care provider if symptoms continue for further evaluation including possible PT or MRI as indicated. Patient is stable and discharged home Departure Impression Primary Impression: Cervical radiculopathy, chronic Disposition: 01 HOME, SELF-CARE Condition: Stable Departure-Patient Inst. Referrals: SHANNON CHILDRESS DO (PCP/Family) Primary Care Physician Patient Instructions: Radiculopathy, Neck Stretches Add. Discharge Instructions: Follow-up with your primary care provider if symptoms continue to worsen or not improving after some gentle stretching and treatment over the next couple days. JOSE F ORANTES DO Oct 09, 2022 22:55
== END 2022-10-09 23:05 | disposition home or self-care (01) ==
LOC: EDUNIT# 22:42 → ER FS 22:45
DX: M54.12 Radiculopathy, cervical region (principal); Z28.310 Unvaccinated for COVID-19
CPT/HCPCS: 99283

== ENCOUNTER 2022-10-11 06:40 | Emergency (ER) | payer SELFPAY ==
[~2022-10-11] VITALS: Ht 162.5 cm; Wt 86.1 kg
[2022-10-11 06:47] VITALS: BP 151/83
--- NOTE | 2022-10-11 07:12 | ED General ---
General Chief Complaint: General Problems/Pain Stated Complaint: PINCHED NERVE/NUMBNESS LEFT SIDE Nursing Triage Note: Patient was seen on 10/09/22 in ER for the same complaint. Patient was diagnosed with a pinched nerve in her neck. Patient has returned via EMS, stating that it has worsened since her last visit. EMS started a 20g in the right AC. Source of Information: Patient, EMS, Old Records Exam Limitations: No Limitations History of Present Illness Date Seen by Provider: Oct 11, 2022 Time Seen by Provider: 06:49 Initial Comments 47-year-old female with past medical history of diabetes and hypertension coming in via EMS from home due to left arm weakness and numbness. This has been going on for more than 4 days, and she has been to the emergency department for this already. She was diagnosed with a cervical radiculopathy and sent home. She was supposed to follow-up with her regular doctor to be evaluated for potential MRI. The pain in her left arm was worse this morning, she felt like her tongue was "thick". She is also having some mild chest discomfort as well that is been constant and feels more like a tightness. She does state that she thinks that this is mostly just anxiety from the whole situation, and does not really think it hurts. Has not taken any medicine for any type of pain. Is otherwise d enying any other acute complaints including any shortness of breath, abdominal pain, nausea, vomiting, diarrhea, fever, chills, trauma, rash, or any other concerns. She does not take any blood thinners. Allergies and Home Medications Allergies Coded Allergies: No Known Drug Allergies (Unverified , 10/11/19) Patient Home Medication List Home Medication List Reviewed: Yes Metformin HCl (Metformin HCl) 1,000 Mg Tablet, 1,000 MG PO BID Prescribed by: CHANDAN RUTH on 10/11/19 175 Metoclopramide HCl (Reglan) 5 Mg Tablet, 5 MG PO 3 times a day Prescribed by: CHANDAN RUTH on 10/20/191712 Ondansetron (Ondansetron Odt) 4 Mg Tab.rapdis, 4 MG PO 3 times a day Prescribed by: CHANDAN RUTH on 10/20/191712 Pantoprazole Sodium (Protonix) 20 Mg Tablet.dr, 20 MG PO DAILY Prescribed by: CHANDAN RUTH on 10/20/19 1713 Review of Systems Review of Systems Constitutional: No fever EENTM: no symptoms reported Respiratory: no symptoms reported Cardiovascular: see HPI Gastrointestinal: no symptoms reported Genitourinary: no symptoms reported Musculoskeletal: see HPI Skin: no symptoms reported Psychiatric/Neurological: See HPI Hematologic/Lymphatic: No Symptoms Reported Past Hwgmxvd-Arborh-Xghigj Hx Patient Social History Tobacco Use?: Yes Tobacco type used: Cigarettes Smoking Status: Current Everyday Smoker Substance use?: No Alcohol Use?: No Pt feels they are or have been: No Seasonal Allergies Seasonal Allergies: No Past Medical History Surgeries: Yes Hysterectomy, Tubal Ligation Respiratory: No Cardiac: Yes Hypertension Neurological: No [employer] History: Hysterectomy Genitourinary: No Gastrointestinal: No Musculoskeletal: No Endocrine: Yes Diabetes, Non-Insulin dep HEENT: No Cancer: No Psychosocial: No Integumentary: No Blood Disorders: No Physical Exam Vital Signs Vital Signs - First Documented 10/11/22 06:47 Temp 37.0 Pulse 68 Resp 16 B/P (MAP) 151/83 (105) Pulse Ox 97 O2 Delivery Room Air Capillary Refill : Less Than 3 Seconds Height, Weight, BMI Height: '" Weight: lbs. oz. kg; 32.00 BMI Method: General Appearance: No Apparent Distress, WD/WN Eyes: Bilateral Eye Normal Inspection HEENT: PERRL/EOMI, Normal ENT Inspection, Pharynx Normal Neck: Full Range of Motion, Normal Inspection, Supple, Other (Tender along the left lateral cervical musculature, positive Spurling going to the left side) Respiratory: Chest Non Tender, Lungs Clear, Normal Breath Sounds, No Accessory Muscle Use, No Respiratory Distress Cardiovascular: Regular Rate, Rhythm, No Edema, Normal Peripheral Pulses Gastrointestinal: Normal Bowel Sounds, Non Tender, Soft; No Distended, No Guarding Back: Normal Inspection, No CVA Tenderness, No Vertebral Tenderness Extremity: Normal Capillary Refill, Normal Inspection, Normal Range of Motion, Non Tender, No Calf Tenderness, No Pedal Edema, Other (Pain along the left trapezius going into the deltoid) Neurologic/Psychiatric: Alert, Oriented x3, No Motor/Sensory Deficits, Normal Mood/Affect, bunch breaker II-XII Norm as Tested, Other (Normal oxmlww-oo-cweh, normal exkk-cd-nzgn, normal speech, normal gait) Skin: Normal Color, Warm/Dry Progress/Results/Core Measures Suspected Sepsis SIRS Temperature: Pulse: 68 Respiratory Rate: 16 Laboratory Tests 10/11/22 07:13: White Blood Count 6.7 Blood Pressure 151 /83 Mean: 105 Laboratory Tests 10/11/22 07:13: Creatinine 1.43H, INR Comment 0.9, Platelet Count 213, Total Bilirubin 0.3 Results/Orders Lab Results Laboratory Tests Test 10/11/22 07:13 Range/Units White Blood Count 6.7 4.3-11.0 10^3/uL Red Blood Count 4.55 3.80-5.11 10^6/uL Hemoglobin 12.5 11.5-16.0 g/dL Hematocrit 38 35-52 % Mean Corpuscular Volume 84 80-99 fL Mean Corpuscular Hemoglobin 28 25-34 pg Mean Corpuscular Hemoglobin Concent 33 32-36 g/dL Red Cell Distribution Width 12.6 10.0-14.5 % Platelet Count 213 130-400 10^3/uL Mean Platelet Volume 12.8 H 9.0-12.2 fL Immature Granulocyte % (Auto) 0 % Neutrophils (%) (Auto) 53 42-75 % Lymphocytes (%) (Auto) 29 12-44 % Monocytes (%) (Auto) 7 0-12 % Eosinophils (%) (Auto) 9 0-10 % Basophils (%) (Auto) 2 0-10 % Neutrophils # (Auto) 3.6 1.8-7.8 10^3/uL Lymphocytes # (Auto) 1.9 1.0-4.0 10^3/uL Monocytes # (Auto) 0.5 0.0-1.0 10^3/uL Eosinophils # (Auto) 0.6 H 0.0-0.3 10^3/uL Basophils # (Auto) 0.1 0.0-0.1 10^3/uL Immature Granulocyte # (Auto) 0.0 0.0-0.1 10^3/uL Prothrombin Time 12.3 12.2-14.7 SEC INR Comment 0.9 0.8-1.4 Activated Partial Thromboplast Time 31 24-35 SEC Carbon Dioxide Level 24 21-32 MMOL/L Blood Urea Nitrogen 28 H 7-18 MG/DL Creatinine 1.43 H 0.60-1.30 MG/DL Estimat Glomerular Filtration Rate 45 BUN/Creatinine Ratio 20 Glucose Level 124 H 70-105 MG/DL Calcium Level 9.5 8.5-10.1 MG/DL Corrected Calcium 9.6 8.5-10.1 MG/DL Magnesium Level 1.9 1.6-2.4 MG/DL Total Bilirubin 0.3 0.1-1.0 MG/DL Aspartate Amino Transf (AST/SGOT) 15 5-34 U/L Alanine Aminotransferase (ALT/SGPT) 13 0-55 U/L Alkaline Phosphatase 125 40-136 U/L Troponin I < 0.30 <0.30 NG/ML Total Protein 6.5 6.4-8.2 GM/DL Albumin 3.9 3.2-4.5 GM/DL Lipase 52 8-78 U/L My Orders Orders - BOSTON ENRIQUEZ MD Ct Head/Cervical Spine Wo (10/11/22 07:07) Cbc With Automated Diff (10/11/22 07:07) Magnesium (10/11/22 07:07) Chest 1 View Ap/Pa Only (10/11/22 07:07) Ekg Tracing (10/11/22 07:07) Comprehensive Metabolic Panel (10/11/22 07:07) Protime With Inr (10/11/22 07:07) Partial Thromboplastin Time (10/11/22 07:07) O2 (10/11/22 07:07) Monitor-Rhythm Ecg Trace Only (10/11/22 07:07) Ed Iv/Invasive Line Start (10/11/22 07:07) Lipase (10/11/22 07:07) Troponin I Fs (10/11/22 07:07) Acetaminophen Tablet (Tylenol Tablet) (10/11/22 07:15) Ketorolac Injection (Toradol Injection) (10/11/22 07:15) Normal Saline 500ml Iv (10/11/22 07:45) Medications Given in ED Current Medications Medications Dose Ordered Sig/Jarrell Route Start Time Stop Time Status Last Admin Dose Admin Acetaminophen 1,000 mg ONCE ONCE PO 10/11/22 07:15 10/11/22 07:16 DC 10/11/22 07:35 1,000 MG Ketorolac Tromethamine 15 mg ONCE ONCE IVP 10/11/22 07:15 10/11/22 07:16 DC 10/11/22 07:35 15 MG Vital Signs/I&O 10/11/22 06:47 Temp 37.0 Pulse 68 Resp 16 B/P (MAP) 151/83 (105) Pulse Ox 97 O2 Delivery Room Air Capillary Refill : Less Than 3 Seconds Blood Pressure Mean: 105 Progress Note : Progress Note 47-year-old female with above history coming in due to several days of left arm symptoms including pain and tingling. ABCs were intact and vitals were stable on presentation. Her neuro exam on my initial evaluation shows an NIH of 0 with her being completely neuro intact. I reviewed the emergency department note fro m a couple days ago where she was diagnosed with cervical radiculopathy, and on my assessment it does seem consistent with this including a positive Spurling, and she does have a lot of tenderness on exam that recreates her symptoms. She does have some vague other symptoms like some vague chest tightness as well as her tongue feeling "thick. Very difficult to delineate the cause. Her tongue appears normal to me and her voice is normal. She is tolerating secretions without difficulty. CT head and cervical spine ordered to assess for signs of hemorrhage versus old stroke as well as any cervical pathology. Given the symptoms have been going on for 4 days, if she had had a stroke, the CT head would show some findings. On my interpretation I do not see any obvious intracranial hemorrhage or mass. Her cervical spine does not show any obvious fracture or dislocation. Chest x-ray my interpretation with no obvious pneumonia, pneumothorax, normal cardiac silhouette. The radiology read also shows nothing acute that would be concerning. I reviewed the patient's MRI that was in our system from 2019. On my interpretation she has disc bulge at multiple levels with the most notable C5/C6 but also multiple levels above that. This is causing narrowing of the spinal c anal. This would fit her symptoms and I can only imagined this has worsened in the past 4 years since the study was done. EKG here with no acute ischemic changes. An IV was placed and basic labs were obtained including cardiac biomarkers. Troponin is negative, white blood cell count normal, hemoglobin normal, her creatinine is slightly elevated and concerning for mild NELLI. She was given a bolus of IV fluids. She is also tolerating p.o. Symptoms consistent with musculoskeletal in origin. MS would be on the differential as well, however she does not have any red flags or significant concerns that would require rapid diagnosis at this time. I will have her follow-up with a neurologist and a spine physician as an outpatient. I believe she is stable for discharge with outpatient follow-up. She was sent home with strict return precautions ECG Initial ECG Impression Date: Oct 11, 2022 Initial ECG Impression Time: 07:12 Initial ECG Rate: 60 Initial ECG Rhythm: Normal Sinus Comment Narrow QRS, normal axis, no significant ST elevation, T wave flattening in the lateral precordial leads which is nonspecific Diagnostic Imaging Diagonstic Imaging: Xray (chest), CT (head and c spine) Comments NAME: MARK CRAWFORD [facility] REC#: [id number] PT STATUS: REG ER : 1975 PHYSICIAN: BOSTON ENRIQUEZ MD ADMIT DATE: 10/11/22/ER FS Draft Date of Exam:10/11/22 CHEST 1 VIEW AP/PA ONLY PATIENT HISTORY: chest pain. TECHNIQUE: Single frontal view of the chest. COMPARISON: 10/20/2019 FINDINGS: The lung volumes are normal. No focal consolidation is seen. No large pleural effusion or pneumothorax is seen. The cardiomediastinal silhouette is normal in size and contour. No acute osseous abnormality is seen. IMPRESSION: No acute pulmonary abnormality seen. Dictated on workstation # [id number] Dict: 10/11/22732 Trans: 10/11/22 0734 CV [id number] Interpreted by: ADONIS ARECHIGA MD Electronically signed by: NAME: MARK CRAWFORD [facility] REC#: [id number] PT STATUS: REG ER : 1975 PHYSICIAN: BOSTON ENRIQUEZ MD ADMIT DATE: 10/11/22/ER FS Draft Date of Exam:10/11/22 CT HEAD/CERVICAL SPINE WO PROCEDURE: CT head and CT cervical spine without contrast. TECHNIQUE: Multiple contiguous axial images were obtained through the brain and cervical spine without the use of intravenous contrast. Sagittal and coronal reformations through the cervical spine were then performed. Auto Exposure Controls were utilized during the CT exam to meet ALARA standards for radiation dose reduction. INDICATION: Left-sided weakness and numbness. COMPARISON: MRI cervical spine without contrast 09/22/2018. FINDINGS: CT HEAD: No intracranial hemorrhage, mass effect, hydrocephalus or extra-axial fluid collections. No CT evidence of a territorial infarction. Mild mucosal thickening in the left maxillary sinus. Mastoids are clear. No acute osseous findings. CT CERVICAL SPINE: Reversal of the normal cervical lordosis. Mild degenerative endplate changes are more moderate at C5-C6. Vertebral body heights preserved. No fractures. No CT evidence of high-grade spinal canal stenosis. Visualized paravertebral soft tissues are unremarkable. Lung apices are clear. IMPRESSION: 1. No acute intracranial or cervical spine CT findings. 2. Mild to moderate spondylotic changes in the cervical spine are greatest at C5-C6. No CT evidence of high-grade neural impingement. Dictated on workstation # [id number] Dict: 10/11/2234 Trans: 10/11/22 0740 CV [id number] Interpreted by: FALLON ALONZO MD Electronically signed by: Departure Impression Primary Impression: Cervical radiculopathy, chronic Additional Impression: Left arm numbness Disposition: 01 HOME, SELF-CARE Condition: Stable Departure-Patient Inst. Decision time for Depature: 08:10 Referrals: [facility]/SHANNON OLIVERA DO (PCP/Family) Primary Care Physician Patient Instructions: Radiculopathy (DC) Add. Discharge Instructions: I have reviewed the MRI you had in your neck and lower back from 2019. You had multiple degenerative changes in your spine and you had disc bulges at that time. This can certainly cause the symptoms that you are having. The tongue thickness/heaviness is an odd symptom to be associated with this. I would prefer if you follow-up with a neurologist as an outpatient for them to rule out multiple sclerosis which is unlikely. The only way to get this rule out is with an MRI which unfortunately we do not have in this facility in [place]. I think it would also be prudent to follow-up with a spine surgeon, as I think the symptoms most likely are just coming from your spine from your disc pushing on the nerves. Please follow-up with your regular doctor to get referrals to these physicians if needed. If you have troubles with payment due to insurance, it may be helpful to switch over to [facility] for your primary care needs. Their number is in this paperwork. Scripts Gabapentin (Gabapentin) 100 Mg Capsule 100 MG PO Q8H for Neuropathic pain for 30 Days, #90 CAP Prov: BOSTON ENRIQUEZ MD 10/11/22 Work/School Note: Family Work Note, Patient Received Medical Care In the Emergency Department On: Oct 11, 2022 Patient Will Be Able to Return to Work/School On: Oct 12, 2022 Work Release Form Date Seen in the Emergency Department: Oct 11, 2022 Return to Work: Oct 13, 2022 Restrictions: No Restrictions BOSTON ENRIQUEZ MD Oct 11, 2022 07:12
[2022-10-11] MEDS ORDERED: ACETAMINOPHEN 500 MG TAB (TYLENOL) PO ONE (07:15)
[2022-10-11] MEDS ORDERED: KETOROLAC 15 MG/ML VIAL IVP ONE (07:15)
[2022-10-11 07:20] LABS: BASOPHILS # (AUTO) 0.1 10^3/uL (0.0-0.1); BASOPHILS % (AUTO) 2 % (0-10); EOSINOPHILS # (AUTO) 0.6 10^3/uL (0.0-0.3); EOSINOPHILS % (AUTO) 9 % (0-10); HEMATOCRIT 38 % (35-52); HEMOGLOBIN 12.5 g/dL (11.5-16.0); LYMPHOCYTES # (AUTO) 1.9 10^3/uL (1.0-4.0); LYMPHOCYTES % (AUTO) 29 % (12-44); MEAN CORPUSCULAR HEMOGLOBIN 28 pg (25-34); MEAN CORPUSCULAR HGB CONC 33 g/dL (32-36); MEAN CORPUSCULAR VOLUME 84 fL (80-99); MEAN PLATELET VOLUME 12.8 fL (9.0-12.2); MONOCYTES # (AUTO) 0.5 10^3/uL (0.0-1.0); MONOCYTES % (AUTO) 7 % (0-12); NEUTROPHILS # (AUTO) 3.6 10^3/uL (1.8-7.8); NEUTROPHILS % (AUTO) 53 % (42-75); PLATELET COUNT 213 10^3/uL (130-400); WHITE BLOOD COUNT 6.7 10^3/uL (4.3-11.0)
[2022-10-11 07:28] LABS: INR 0.9 (0.8-1.4); PROTHROMBIN TIME PATIENT 12.3 SEC (12.2-14.7)
--- NOTE | 2022-10-11 07:35 | Diagnostic Imaging Report ---
PATIENT HISTORY: chest pain. TECHNIQUE: Single frontal view of the chest. COMPARISON: 10/20/2019 FINDINGS: The lung volumes are normal. No focal consolidation is seen. No large pleural effusion or pneumothorax is seen. The cardiomediastinal silhouette is normal in size and contour. No acute osseous abnormality is seen. IMPRESSION: No acute pulmonary abnormality seen. Dictated by: Dictated on workstation # [id number]
--- NOTE | 2022-10-11 07:40 | Diagnostic Imaging Report ---
PROCEDURE: CT head and CT cervical spine without contrast. TECHNIQUE: Multiple contiguous axial images were obtained through the brain and cervical spine without the use of intravenous contrast. Sagittal and coronal reformations through the cervical spine were then performed. Auto Exposure Controls were utilized during the CT exam to meet ALARA standards for radiation dose reduction. INDICATION: Left-sided weakness and numbness. COMPARISON: MRI cervical spine without contrast 09/22/2018. FINDINGS: CT HEAD: No intracranial hemorrhage, mass effect, hydrocephalus or extra-axial fluid collections. No CT evidence of a territorial infarction. Mild mucosal thickening in the left maxillary sinus. Mastoids are clear. No acute osseous findings. CT CERVICAL SPINE: Reversal of the normal cervical lordosis. Mild degenerative endplate changes are more moderate at C5-C6. Vertebral body heights preserved. No fractures. No CT evidence of high-grade spinal canal stenosis. Visualized paravertebral soft tissues are unremarkable. Lung apices are clear. IMPRESSION: 1. No acute intracranial or cervical spine CT findings. 2. Mild to moderate spondylotic changes in the cervical spine are greatest at C5-C6. No CT evidence of high-grade neural impingement. Dictated by: Dictated on workstation # [id number]
[2022-10-11 07:42] LABS: ALBUMIN 3.9 GM/DL (3.2-4.5); BILIRUBIN,TOTAL 0.3 MG/DL (0.1-1.0); CALCIUM 9.5 MG/DL (8.5-10.1); CREATININE SERUM 1.43 MG/DL (0.60-1.30); MAGNESIUM 1.9 MG/DL (1.6-2.4); TOTAL PROTEIN 6.5 GM/DL (6.4-8.2)
[2022-10-11] MEDS ORDERED: NS IV 500 ML 500 ML IV ONE (07:45)
[2022-10-11 07:48] LABS: POTASSIUM 4.2 MMOL/L (3.6-5.0)
[2022-10-11] MEDS ORDERED: GABA-486 PO (07:58)
== END 2022-10-11 08:15 | disposition home or self-care (01) ==
LOC: EDUNIT# 06:40 → ER FS 06:47
DX: M54.12 Radiculopathy, cervical region (principal); G89.29 Other chronic pain; R79.89 Other specified abnormal findings of blood chemistry; F17.210 Nicotine dependence, cigarettes, uncomplicated; Z28.310 Unvaccinated for COVID-19
CPT/HCPCS: 36415; 70450; 71045; 72125; 80053; 83690; 83735; 84484; 85025; 85610; 85730; 93005